=== PATIENT | female | born 1985 | race Caucasian/White ===

== ENCOUNTER 2023-11-16 12:26 | Emergency (ER) | payer OTHER, SELFPAY ==
[2023-11-16 12:28] VITALS: BP 158/99
[2023-11-16 12:59] LABS: % Basophils 0.4 % (0-2); % Eosinophils 0.4 % (0-6); % Immature Granulocytes 0.3 % (0-0.5); % Lymphocytes 33.1 % (20.5-51.1); % Monocytes 6.2 % (1.7-9.3); % Neutrophils 59.6 % (42.2-75.2); Absolute Lymphocytes 2.4 10^3/uL (1.2-3.4); Absolute Monocytes 0.4 10^3/uL (0.1-0.6); Absolute Neutrophils 4.2 10^3/uL (1.4-6.5); Hematocrit 40.9 % (37.0-47.0); Hemoglobin 14.4 g/dL (12.0-16.0); Mean Corp Hgb Conc. 35.2 g/dL (33.0-37.0); Mean Corpuscular Hgb 29.4 pg (27.0-31.0); Mean Corpuscular Volume 83.5 fL (81.0-99.0); Mean Platelet Volume 9.2 fL (7.4-10.4); Nucleated Red Blood Cells % 0 %; Platelet Count 307 10^3/uL (130-400); Red Cell Dist. Width 11.9 % (11.5-14.5); White Blood Cell Count 7.1 10^3/uL (4.8-10.8)
[2023-11-16 13:11] LABS: HCG, Serum Qualitative Screen Negative
[2023-11-16 13:14] LABS: ALT (SGPT) 18 U/L (0-35); AST (SGOT) 25 U/L (14-36); Alkaline Phosphatase 90 U/L (38-126); Blood Urea Nitrogen 16 mg/dl (7-17); Calcium 10.1 mg/dl (8.4-10.2); Carbon Dioxide 26 mmol/L (22-30); Chloride 102 mmol/L (98-107); Glucose 126 mg/dl (70-99); Potassium 3.6 mmol/L (3.5-5.1); Sodium 138 mmol/L (135-145); Total Bilirubin 0.4 mg/dl (0.2-1.3); Total Protein 7.4 g/dl (6.3-8.2); eGFR > 60.00
[2023-11-16 13:22] LABS: Troponin I < 0.012 ng/ml
[2023-11-16 13:28] VITALS: BP 135/82
--- NOTE | 2023-11-16 13:58 | ED.GENMED ---
History of Present Illness
General
Chief Complaint: Chest Pain
Source: patient
Time Seen by Provider: 11/16/23 13:37
History of Present Illness
History of Present Illness:
38yoF with no significant past medical history presenting for evaluation of chest pain. She was at work this afternoon around 2 hours ago. She was sitting at her desk when she had an abrupt onset of chest discomfort, palpitations, lightheadedness,
as well as tingling in her jaw and bilateral legs. She denies any syncope. She had two similar episodes this week in which she woke up in the middle of her sleep with palpitations. Additionally, she reports excessive fatigue despite sleeping
adequately. She also reports pain in her left pelvic region that has been ongoing for about 4 years. She had a pelvic ultrasound and CT scan 3 years ago which were normal. She also had an MRI of her lumbar spine recently which was normal. Patient is
worried that something is pushing on her organs and causing her symptoms.
Phy Exam
General Physical Exam
General Presentation: well appearing and no apparent distress
General age: appears stated age
General Skin: warm and dry
General Habitus: normal
General Mental: alert and anxious
Cardiovascular Exam
Cardiovascular Exam: regular rate/rhythm, no edema and no murmur
Pulmonary Exam
Pulmonary Exam: lungs clear, no respiratory distress, no crackles and no wheezing
Gastrointestinal Exam
Gastrointestinal Exam: non tender, soft and non distended
[place] Coma Scale
Eye Opening: Spontaneous
Verbal Response: Oriented
Motor Response: Obeys Commands
GCS Total Score: 15
Skin Exam
Skin Exam: normal color and warm/dry
Psychiatric Exam
Psychiatric Exam: anxious
Scores
Heart Score for Chest Pain Patients
STEMI patient?: Not applicable
Course
Orders/Labs/Results
Orders:
Orders
11/16/23 12:33
Electrocardiogram (*1) Urgent
Reason for Study: Chest Pain
EKG- Treatment ONCE
Test Result ONCE
11/16/23 12:37
CMP [Comprehensive Metabolic Panel] Urgent
Complete Blood Count/With Diff Urgent
, Serum Qualitative Screen [HCG, Serum Qualitative Screen] Urgent
Troponin I Urgent
11/16/23 13:57
Pelvis & Transvaginal US [US Pelvis W Transvag Combined] Urgent
Comment:
Reason For Exam: L pelvic pain
11/16/23 13:58
CR Chest - 2 Views Urgent
Comment:
Reason For Exam: CP
11/16/23 14:02
0.9% Sodium Chloride 1000 ml [Nss] 1,000 ml IV BOLUS
11/16/23 14:05
Free T4 Urgent
TSH Reflex To Free T4 Urgent
Troponin I Urgent
11/16/23 14:45
Electrocardiogram (*1) Urgent
Reason for Study: Chest Pain
Abnormal Lab Results
11/16/23 11/16/23
12:37 14:05
Glucose 126 H mg/dl
(70-99)
TSH (Reflex) 0.43 L uIU/ml
(0.47-4.68)
11/16/23 12:37
11/16/23 12:37
Vital Signs
Initial and Last Documented VS:
Initial Vital Signs
Temp Pulse Resp BP Pulse Ox
98.0 F 96 18 158/99 100
11/16/23 12:28 11/16/23 12:28 11/16/23 12:28 11/16/23 12:28 11/16/23 12:28
Last Documented Vital Signs
Temp Pulse Resp BP Pulse Ox
98.0 F 77 14 129/73 99
11/16/23 12:28 11/16/23 16:45 11/16/23 16:45 11/16/23 16:19 11/16/23 16:45
MDM/Problems Addressed
Differential Diagnosis Includes:
38yoF here after an episode of palpitations and chest discomfort. Associated with tingling in jaw and bilateral legs. Currently improved. Also c/o L pelvic pain x several years. She is afebrile and hemodynamically stable. She appears anxious on
exam. Exam otherwise reassuring. Differential diagnosis includes but is not limited to: arrhythmia, ACS, electrolyte abnormality, thyroid dysfunction, anxiety
Initial ED plan: Cardiac labs and EKG checked in triage. EKG shows NSR without ectopy or ischemic changes. Troponin WNL. Will place on quality assurance monitor final. Check delta troponin/EKG, TSH, CXR, and pelvic ultrasound.
*EKG
Interpreted by ED Provider?: Yes
EKG Intrepretation Date: 11/16/23
Heart Rate: 83
Rate: normal
Rhythm: sinus
[place]: normal axis
Interval: normal interval
QRS Pattern: normal QRS
Ischemia: no ischemia
*Critical Care Note
Total Time (30-74mins, 75-104mins- exclusive of procedures): Not Applicable
Update Note
Update Note:
Repeat EKG and troponin unchanged. TSH mildly low although free T4 is normal. CXR is clear. Pelvic ultrasound is normal. No telemetry events noted during ED stay. She is feeling improved on reassessment. She is stable for discharge. She has a PCP
appt scheduled in 2 days. ED return precautions discussed. She was discharged in stable condition.
ED Attending Note
-
Portions of this chart may have been created with voice recognition software.� Occasional wrong word or��sound alike� substitutions may have occurred due to the inherent limitations of voice recognition software.
Discharge Plan
Departure
Patient Disposition: Home (Routine Discharge)
Date of Disposition: 11/16/23
Time of Disposition: 16:52
Patient with high blood pressure during this ER visit?: No
Discharge Problem:
Palpitations, Chest pain
Instructions: Heart Palpitations
Referrals:
Juan Wolf MD [Family Provider] -
Activity Restrictions/Additional Instructions:
Please follow-up with your family doctor on Tuesday as previously scheduled. Return to the ER with any new or worsening symptoms.
Interventions
Interventions:
*Risk Screen - Suicide Last Done: 11/16/23 15:00
*General Assessment Last Done: 11/16/23 15:00
*Neglect/Abuse Screening Last Done: 11/16/23 15:00
*Nursing Disposition Last Done: 11/16/23 17:03
ED- Cardiac Assessment Last Done: 11/16/23 15:00
Discharge Date and Time
Discharge Date/Time: 11/16/23 17:35
Print Language: PERSIAN
[2023-11-16 14:00] VITALS: BP 133/69
[2023-11-16] MEDS: NSS 1000 IV (14:12)
[2023-11-16 14:54] LABS: Troponin I < 0.012 ng/ml
[2023-11-16 15:00] VITALS: BP 128/87
[2023-11-16 16:19] VITALS: BP 129/73
[2023-11-16 17:07] LABS: TSH Reflex To Free T4 0.43 uIU/ml (0.47-4.68)
[2023-11-16 17:36] LABS: Free T4 1.32 ng/dl (0.78-2.19)
== END 2023-11-16 17:35 | disposition home or self-care (01) ==
LOC: EMR 12:26
PROVIDERS: Physician Assistant; Physician Assistant Medical; EMERGENCY PHYSICIAN Student in an Organized Health Care Education/Training Program; FAMILY PHYSICIAN Family Medicine
DX: R07.89 Other chest pain (principal); R00.2 Palpitations; R42 Dizziness and giddiness; R20.2 Paresthesia of skin; R53.83 Other fatigue; R10.2 Pelvic and perineal pain
CPT/HCPCS: 99285; 96360; 71046; 76830; 76856; 80053; 84439; 84443; 84484; 84703; 85025; 93005